=== PATIENT | male | born 1970 | race African-American/Black ===

== ENCOUNTER 2018-12-19 10:29 | Emergency (ER) | payer OTHER ==
[~2018-12-19] VITALS: Ht 182.9 cm; Wt 148.3 kg
[2018-12-19 11:22] LABS: ABSOLUTE NEUTROPHILS 5.6 thou/uL (1.4-8.2); EOSINOPHILS 1.8 % (0.0-3.0); HEMATOCRIT 44.7 % (42.0-52.0); HEMOGLOBIN 15.4 gm/dL (14.0-18.0); LYMPHOCYTES 21.7 % (24.0-44.0); MCH 30.5 pg (26.0-34.0); MCHC 34.4 g/dL (28.0-37.0); MCV 88.7 fL (80.0-100.0); MONOCYTES 9.9 % (1.0-8.0); PLATELET COUNT 660 thou/uL (150-400); POLYS 65.6 % (36.0-66.0); RBC 5.04 mil/uL (4.50-6.00); RDW 14.9 % (10.5-14.5); WBC 8.5 thou/uL (4.0-11.0)
[2018-12-19 11:39] LABS: ANION GAP 5 mmol/L (7-16); BUN 18 mg/dL (7-18); CHLORIDE 106 mmol/L (98-107); CO2 29 mmol/L (21-32); CREATININE 1.3 mg/dL (0.7-1.3); GLUCOSE 118 mg/dL (74-106); POTASSIUM 4.2 mmol/L (3.5-5.1); SODIUM 140 mmol/L (136-145)
[2018-12-19 11:45] LABS: AMP/METHAMP Negative (Negative); BARBITURATES Negative (Negative); BENZODIAZEPINES Negative (Negative); COCAINE Negative (Negative); METHADONE Negative (Negative); OPIATES Negative (Negative); PCP Negative (Negative)
[2018-12-19 11:47] LABS: ALBUMIN 4.1 g/dL (3.4-5.0); MAGNESIUM 1.9 mg/dL (1.8-2.4); SGOT 21 U/L (15-37); SGPT 26 U/L (30-65); TOTAL BILIRUBIN 0.5 mg/dL (<0.1-1.0); TOTAL PROTEIN 7.2 g/dL (6.4-8.2); TROPONIN-I <0.06 ng/mL (<0.06)
[2018-12-19] MEDS ORDERED: FLOMAX0.4 MG PO (12:03)
[2018-12-19 12:47] VITALS: BP 141/82
--- NOTE | 2018-12-19 17:01 | EKG ---
[place] [address] [facility] [place] [address] ELECTROCARDIOGRAM REPORT Name: KARL GARCIA Room #: DEP Shahid#: [id number] ������������������ Admission: 12/19/18 ������������������ Attend Phys: Discharge: 12/19/18 ������������������ Date of : 70 Report #: [id number] ����������������������������������������������������������������� [id number] THIS REPORT FOR: //name// 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[facility] : 1970 Requested By: Ethan Rubio Order Number: [id number] MD: Arnaldo Malik Measurements Intervals [place] Rate: 88 P: 33 CA: 153 QRS: 13 QRSD: 77 T: 9 QT: 363 QTc: 440 Interpretive Statements Sinus rhythm Normal tracing No previous ECG available for comparison Electronically Signed On 12-19-2018 17:00:56 CDT by Arnaldo Malik [email or web address] ��������������������������������������������� <ELECTRONICALLY SIGNED> ���������������������������������������� By: Arnaldo Malik MD, [facility] ��������������������������������������������� 12/19/18 1700 1043 1043 Arnaldo Malik MD, FACC /EPI
== END 2018-12-19 12:48 | disposition home or self-care (01) ==
LOC: ER 10:29
PROVIDERS: Emergency Medicine
DX: R42 Dizziness and giddiness (principal); R00.2 Palpitations; T43.615A Adverse effect of caffeine, initial encounter; X58.XXXA Exposure to other specified factors, initial encounter

== ENCOUNTER 2019-07-27 18:27 | Emergency (ER) | payer BC ==
[~2019-07-27] VITALS: Ht 182.9 cm; Wt 158.8 kg
[~2019-07-27 18:27] MED LIST: FLOMAX0.4 MG PO
[2019-07-27] MEDS ORDERED: METFORMIN HCL500 M3 PO ×2 (18:37→21:40)
[2019-07-27] MEDS ORDERED: NOVOLOG100 UNIT/M SUBQ ×2 (18:37→21:40)
[2019-07-27 18:44] LABS: URINE BILIRUBIN NEGATIVE (Negative); URINE BLOOD NEGATIVE (Negative); URINE CLARITY CLEAR; URINE COLOR YELLOW; URINE GLUCOSE-RANDOM* 3+ (Negative); URINE KETONES 1+ (Negative); URINE LEUKOCYTES-REFLEX NEGATIVE (Negative); URINE NITRITE-REFLEX NEGATIVE (Negative); URINE PROTEIN (DIPSTICK) NEGATIVE (Negative); URINE SPECIFIC GRAVITY <= 1.005 (1.005-1.035); URINE UROBILINOGEN 0.2 E.U./dl (0.2-1.0)
[2019-07-27 18:59] LABS: ABSOLUTE NEUTROPHILS 7.8 thou/uL (1.4-8.2); BASOPHILS 1.1 % (0.0-2.0); EOSINOPHILS 1.4 % (0.0-3.0); HEMATOCRIT 47.8 % (42.0-52.0); HEMOGLOBIN 16.3 gm/dL (14.0-18.0); LYMPHOCYTES 20.1 % (24.0-44.0); MCH 30.6 pg (26.0-34.0); MCHC 34.1 g/dL (28.0-37.0); MCV 89.7 fL (80.0-100.0); MONOCYTES 9.7 % (1.0-8.0); PLATELET COUNT 890 thou/uL (150-400); POLYS 67.7 % (36.0-66.0); RBC 5.34 mil/uL (4.50-6.00); RDW 13.6 % (10.5-14.5); WBC 11.5 thou/uL (4.0-11.0)
[2019-07-27 19:15] LABS: CALCIUM 10.1 mg/dL (8.5-10.1); CREATININE 1.6 mg/dL (0.7-1.3); POTASSIUM 5.5 mmol/L (3.5-5.1)
[2019-07-27] MEDS ORDERED: ACYCLOVIR 800800 MG PO (21:40)
[2019-07-27 22:15] VITALS: BP 154/95
== END 2019-07-27 22:15 | disposition home or self-care (01) ==
LOC: ER 18:27
PROVIDERS: Nurse Practitioner Family
DX: N17.9 Acute kidney failure, unspecified (principal); E11.65 Type 2 diabetes mellitus with hyperglycemia; N50.89 Other specified disorders of the male genital organs; E87.1 Hypo-osmolality and hyponatremia; E87.5 Hyperkalemia; D47.3 Essential (hemorrhagic) thrombocythemia; R42 Dizziness and giddiness; Z79.4 Long term (current) use of insulin

== ENCOUNTER 2019-08-24 12:51 | Emergency (ER) | payer BC ==
[~2019-08-24] VITALS: Ht 190.5 cm; Wt 136.1 kg
[~2019-08-24 12:51] MED LIST changes: +ACYCLOVIR 800800 MG PO; +METFORMIN HCL500 M3 PO; +NOVOLOG100 UNIT/M SUBQ
[2019-08-24 15:31] LABS: HEMATOCRIT 49.7 % (42.0-52.0); HEMOGLOBIN 16.7 gm/dL (14.0-18.0); MCH 30.2 pg (26.0-34.0); MCHC 33.5 g/dL (28.0-37.0); MCV 90.1 fL (80.0-100.0); RBC 5.52 mil/uL (4.50-6.00); RDW 13.9 % (10.5-14.5)
[2019-08-24 15:44] LABS: URINE BILIRUBIN NEGATIVE (Negative); URINE BLOOD NEGATIVE (Negative); URINE CLARITY CLEAR; URINE COLOR YELLOW; URINE GLUCOSE-RANDOM* 2+ (Negative); URINE KETONES NEGATIVE (Negative); URINE LEUKOCYTES-REFLEX NEGATIVE (Negative); URINE NITRITE-REFLEX NEGATIVE (Negative); URINE PROTEIN (DIPSTICK) TRACE (Negative); URINE SPECIFIC GRAVITY >= 1.030 (1.005-1.035); URINE UROBILINOGEN 0.2 E.U./dl (0.2-1.0)
[2019-08-24 16:00] VITALS: BP 144/101
== END 2019-08-24 16:29 | disposition home or self-care (01) ==
LOC: ER 12:51
PROVIDERS: Physician Assistant
DX: L73.8 Other specified follicular disorders (principal); E11.65 Type 2 diabetes mellitus with hyperglycemia; E66.9 Obesity, unspecified